=== PATIENT | male | born 1955 | race Caucasian/White ===

== ENCOUNTER 2020-08-03 07:52 | Emergency (ER) | payer MEDICARE, BC ==
[~2020-08-03] VITALS: Ht 167.6 cm; Wt 65.8 kg
[~2020-08-03 07:52] MED LIST: EXCEDRIN PO; FLUO40CA8 PO; KLONOPIN PO; PRAV10TA40 PO
[2020-08-03] MEDS ORDERED: LIDOCAINE HCL 2% 20 ML VIAL TP ONE (08:15)
[2020-08-03] MEDS ORDERED: ACETAMINOPHEN 325 MG TABLET PO ONE (08:30)
[2020-08-03] MEDS ORDERED: ACETAMINOPHEN 325 MG TABLET ONE (08:35)
[2020-08-03] MEDS ORDERED: LIDOCAINE HCL 2% 20 ML VIAL ONE (08:36)
[2020-08-03] MEDS ORDERED: NEOMY/BACITRA/POLYMYXIN B OINT UD PACKET TP ONE (10:02)
--- NOTE | 2020-08-03 10:24 | NUR ---
WOUND LACERATION SUTURED BY DR MARTINI. DERESSINGS APPLIED PER MD ORDER. DISCHARGED IN STABLE CONDITION.
[2020-08-03 10:27] VITALS: BP 108/79
== END 2020-08-03 10:28 | disposition home or self-care (01) ==
LOC: ER 07:52
DX: S61.411A Laceration without foreign body of right hand, initial encounter (principal); W25.XXXA Contact with sharp glass, initial encounter; Y93.89 Activity, other specified; Y99.8 Other external cause status; N40.0 Benign prostatic hyperplasia without lower urinary tract symptoms; E78.00 Pure hypercholesterolemia, unspecified; Z79.899 Other long term (current) drug therapy
CPT/HCPCS: 12002; 73130; 76536; 99284; J3490; A4217; A4663